=== PATIENT | female | born 1960 | race Two or more races ===

== ENCOUNTER 2020-03-15 23:48 | Emergency (ER) | payer OTHER ==
[~2020-03-15] VITALS: Ht 160 cm; Wt 75.0 kg
[2020-03-16] MEDS ORDERED: ATOR20TA65 PO (00:10)
[2020-03-16] MEDS ORDERED: LISI-658 PO (00:10)
[2020-03-16] MEDS ORDERED: CITA10TA99 PO (00:10)
[2020-03-16] MEDS ORDERED: MORPHINE SULFATE 4 MG/ML SYRINGE IVP ONE ×2 (01:00→02:30)
[2020-03-16] MEDS ORDERED: ONDANSETRON HCL 4 MG/2 ML VIAL IVP ONE (01:00)
[2020-03-16 02:00] VITALS: BP 127/77
== END 2020-03-16 03:44 | disposition home or self-care (01) ==
LOC: EMS 23:48
DX: S82.65XA Nondisplaced fracture of lateral malleolus of left fibula, initial encounter for closed fracture (principal); S82.102A Unspecified fracture of upper end of left tibia, initial encounter for closed fracture; W19.XXXA Unspecified fall, initial encounter; Y93.41 Activity, dancing; Y92.89 Other specified places as the place of occurrence of the external cause; Y99.8 Other external cause status
CPT/HCPCS: 29505; 73590; 73610; 96374; 96375; 96376; 99284; J2270; J2405